=== PATIENT | female | born 1985 | race Caucasian/White ===

== ENCOUNTER 2019-06-21 16:56 | Emergency (ER) | payer MEDICAID ==
[2019-06-21] MEDS ORDERED: Pepcid 20 MG VIAL IV ONE ×2 (17:20→17:27)
[2019-06-21] MEDS ORDERED: Sodium Chloride 0.9% 1000 ML 1,000 ML IV STA (17:20)
[2019-06-21] MEDS ORDERED: Sodium Chloride 0.9% 1000 ML 1,000 ML ONE (17:27)
[2019-06-21 17:41] LABS: Absolute Neutrophil Ct (ANC) 3.79 (1.4-6.9); BASOPHIL % 0.3 % (0.0-0.4); Basophil (Absolute #) 0.02 (0-0.4); Eosinophil % 3.9 % (0.00-5.0); Eosinophil (Absolute #) 0.28 (0-0.5); Hematocrit 39.2 % (35-47); Lymphocyte (Absolute #) 2.51 (1.0-4.6); Lymphocytes % 35.2 % (24.0-44.0); Mean Cell Volume 95.8 fl (78-100); Mean Corpuscular Hemoglobin 31.8 pg (26-32); Mean Corpuscular Hgb Concent. 33.2 g/dl (32-36); Mean Platelet Volume 10.4 fl (6-9.5); Monocyte (Absolute #) 0.53 (0.0-1.3); Monocytes % 7.4 % (0.0-12.0); Neutrophil % 53.2 % (36.0-66.0); Platelet Count 282 K/mm3 (150-450); Red Blood Count 4.09 M/mm3 (4.1-5.4); Red Cell Distribution Width 12.8 % (11.5-14.0); White Blood Count 7.1 K/mm3 (4.0-10.5)
[2019-06-21 17:49] LABS: INR 1.03 (0.8-3.0); PROTIME 11.6 SECONDS (9.95-12.35)
[2019-06-21 17:54] LABS: ALKALINE PHOSPHATASE 73 U/L (38-126); AMYLASE 55 U/L (30-110); ANION GAP 10.1 MEQ/L (5-15); BLOOD UREA NITROGEN 9 mg/dL (7-17); CHLORIDE 106 mmol/L (98-107); Calcium 9.4 mg/dL (8.4-10.2); Carbon Dioxide 26 mmol/L (22-30); Creatinine 1 0.62 mg/dL (0.52-1.04); Glucose 85 mg/dL (74-106); LIPASE 37 U/L (23-300); Potassium 3.6 mmol/L (3.5-5.1); SGOT/AST 24 U/L (14-36); SGPT/ALT 22 U/L (0-35); SODIUM 138 mmol/L (137-145); Total Protein 7.2 g/dL (6.3-8.2)
[2019-06-21 18:23] LABS: Appearance SLIGHTLY CLOUDY (CLEAR); Bilirubin NEGATIVE (NEGATIVE); Blood NEGATIVE Ery/ul (0-5); Epithelial Cells RARE /HPF (FEW); Glucose NEGATIVE (NEGATIVE); Ketones NEGATIVE (NEGATIVE); Leukocyte Esterase TRACE (NEGATIVE); Mucus SLIGHT /HPF (NEGATIVE); Nitrite NEGATIVE (NEGATIVE); Protein,Urine Dip NEGATIVE (Negative); Specific Gravity 1.018 (1.005-1.025); Urobilinogen NEGATIVE mg/dL (0-1); WBC 0-2 /HPF (0-5)
--- NOTE | 2019-06-21 18:29 | ERPHSYRPT ---
- History of Present Illness Time Seen by Provider: 06/21/19 17:50 Historian: patient Exam Limitations: no limitations Patient Subjective Stated Complaint: "I have had vomiting, nausea, and abd pains for four days. [facility] went to [facility] and they ordered blood work and CT scan. Said it was my gallbladder, full of stones and sludge. Told me to follow up with my PCP and get my gallbladder removed. The pain has increased and is radiating to my chest. Pain is mainly in my mid upper quad and right upper quad. " Triage Nursing Assessment: Pt presents to ER with complaints of gallbladder issues and abd pain. Pt states now pain is radiating to chest. Abd is firm and very tender to touch. Pt appears in extreme pain. Pt causes nausea but denies vomiting at this time. States vomited yesterday. Complains of dark tar like stools yesterday and diarrhea this morning. Pt lungs clear and resp easy and unlabored at this time. Pt is alert and oriented x 3. Rating pain 10/10 scale. Able to walk and communicate normally. Physician History: Abdominal pain with nausea and vomiting for over one year, worse over the past week. Had a CT scan of her abdomen on 06/18/2019 which gallbladder disease per patient's history. Timing/Duration: week(s) (1), constant Activities at Onset: none Quality: aching, cramping Abdominal Pain Onset Location: RUQ Pain Radiation: epigastric Severity of Pain-Max: severe Severity of Pain-Current: severe Modifying Factors: Worsens With: eating Associated Symptoms: nausea, vomiting, No back, No chest pain, No diaphoresis, No diarrhea, No fever/chills, No fatigue, No headache, No heartburn, No loss of appetite, No neck pain, No rash, No shortness of breath, No weakness Previous symptoms: same symptoms as today, recently seen Allergies/Adverse Reactions: amoxicillin Allergy (Verified 06/21/19 17:35) Home Medications: Escitalopram Oxalate 10 mg PO DAILY 06/21/19 [History] Hydroxyzine HCl 25 mg [Atarax 25 mg] 25 mg PO Q12H PRN PRN 06/21/19 [ History] Hx Tetanus, Diphtheria Vaccination/Date Given: Yes Hx Influenza Vaccination/Date Given: Yes Hx Pneumococcal Vaccination/Date Given: No Immunizations Up to Date: Yes - Review of Systems Constitutional: No Fever, No Chills, No Fatigue Ears, Nose, & Throat: No Throat Pain, No Painful Swallowing Respiratory: No Cough, No Dyspnea Cardiac: No Chest Pain, No Edema, No Syncope Abdominal/Gastrointestinal: Abdominal Pain, Nausea, Vomiting, Appetite Changes, No Diarrhea, No Hematemesis Genitourinary Symptoms: No Dysuria, No Frequency, No Hematuria, No Flank Pain, No Vaginal Discharge Musculoskeletal: No Back Pain, No Neck Pain Skin: No Rash Neurological: No Dizziness, No Focal Weakness, No Sensory Changes Psychological: No Symptoms Endocrine: No Excessive Sweating Hematologic/Lymphatic: No Easy Bleeding, No Easy Bruising All Other Systems: Reviewed and Negative - Past Medical History Pertinent Past Medical History: Yes Musculoskeletal History: Rheumatoid Arthritis Psycho-Social History: Anxiety Other Medical History: Lupus - Past Surgical History Past Surgical History: Yes Other Surgical History: carpal tunnel - Social History Smoking Status: Current every day smoker Drug Use: none Patient Lives Alone: No - Female History Hx Last Menstrual Period: 07/13/2018 Hx Now: No - Nursing Vital Signs Nursing Vital Signs: Initial Vital Signs Temperature 99 F 06/21/19 17:18 Pulse Rate 81 06/21/19 17:18 Respiratory Rate 16 06/21/19 17:18 Blood Pressure 156/97 06/21/19 17:18 O2 Sat by Pulse Oximetry 97 06/21/19 17:18 Pain Scale Pain Intensity 4 - Physical Exam General Appearance: no apparent distress, alert Eye Exam: PERRL/EOMI, eyes nml inspection Ears, Nose, Throat Exam: normal ENT inspection, pharynx normal, moist mucous membranes Neck Exam: normal inspection, non-tender, supple, full range of motion Respiratory Exam: normal breath sounds, lungs clear, airway intact, No respiratory distress, No diminished breath sounds, No crackles/rales Cardiovascular Exam: regular rate/rhythm, normal heart sounds, normal peripheral pulses, capillary refill <2 sec Gastrointestinal/Abdomen Exam: soft, normal bowel sounds, tenderness (RUQ mild) , No distention, No mass, No guarding, No ecchymosis Back Exam: normal inspection, normal range of motion, No CVA tenderness, No vertebral tenderness Extremity Exam: normal inspection, normal range of motion, pelvis stable Neurologic Exam: alert, oriented x 3, cooperative, 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 as tested, normal mood/affect, sensation nml, No motor deficits Skin Exam: normal color, warm, dry SpO2 Interpretation: normal SpO2: 97 O2 Delivery: Room Air - Course Nursing assessment & vital signs reviewed: Yes EKG Interpreted by Me: RATE (70), Sinus Rhythm, NORMAL AXIS, NORMAL INTERVALS, NORMAL QRS, NORMAL ST-T, Other (negative previous EKG for comparison) - CT Exams Abdomen/Pelvis CT Interpretation: Other (from 06/18/2019: Per Radiologist Interpretation: Biliary Sludge, no cholecystitis, no stones, no gallbladder wall thickening) Ordered Tests: Active Orders 24 hr Category Date Time Status EKG-ER Only STAT Care 06/21/19 17:20 Active IV Insertion STAT Care 06/21/19 17:20 Active AMYLASE Stat Lab 06/21/19 17:20 Completed CBC W DIFF Stat Lab 06/21/19 17:20 Completed CMP Stat Lab 06/21/19 17:20 Completed HCG,QUALITATIVE URINE Stat Lab 06/21/19 17:51 Completed LIPASE Stat Lab 06/21/19 17:20 Completed Lactic Acid Stat Lab 06/21/19 17:26 Completed PROTIME WITH INR Stat Lab 06/21/19 17:20 Completed TROPONIN Q3H Lab 06/21/19 17:20 Completed TROPONIN Q3H Lab 06/21/19 20:30 Ordered TROPONIN Q3H Lab 06/21/19 23:30 Ordered TROPONIN Q3H Lab 06/22/19 02:30 Ordered TROPONIN Q3H Lab 06/22/19 05:30 Ordered UA W/RFX UR CULTURE Stat Lab 06/21/19 17:51 Completed Medication Summary Discontinued Medications Generic Name Dose Route Start Last Admin Trade Name Freq PRN Reason Stop Dose Admin Famotidine 20 mg 06/21/19 17:20 06/21/19 17:30 Pepcid 20 Mg Vial IV 06/21/19 17:21 20 mg STAT ONE Administration Famotidine Confirm 06/21/19 17:27 Pepcid 20 Mg Vial Administered 06/21/19 17:28 Dose 20 mg IV .STK-MED ONE Sodium Chloride 1,000 mls @ 999 mls/hr 06/21/19 17:20 06/21/19 18:46 Sodium Chloride 0.9% 1000 Ml IV 06/21/19 18:20 Infused .Q1H1M STA Infusion Sodium Chloride Confirm 06/21/19 17:27 Sodium Chloride 0.9% 1000 Ml Administered 06/21/19 17:28 Dose 1,000 mls @ .ROUTE .[facility] ONE Lab/Rad Data: Laboratory Result Diagrams 06/21/19 17:20 06/21/19 17:20 Laboratory Results 06/21/19 06/21/19 06/21/19 Range/Units 17:51 17:51 17:26 WBC (4.0-10.5) K/mm3 RBC (4.1-5.4) M/mm3 Hgb (12.0-16.0) gm/dl Hct (35-47) % MCV (78-100) fl MCH (26-32) pg MCHC (32-36) g/dl RDW (11.5-14.0) % Plt Count (150-450) K/mm3 MPV (6-9.5) fl Gran % (36.0-66.0) % Eos # (Auto) (0-0.5) Absolute Lymphs (auto) (1.0-4.6) Absolute Monos (auto) (0.0-1.3) Lymphocytes % (24.0-44.0) % Monocytes % (0.0-12.0) % Eosinophils % (0.00-5.0) % Basophils % (0.0-0.4) % Absolute Granulocytes (1.4-6.9) Basophils # (0-0.4) PT (9.95-12.35) SECONDS INR (0.8-3.0) Sodium (137-145) mmol/L Potassium (3.5-5.1) mmol/L Chloride (98-107) mmol/L Carbon Dioxide (22-30) mmol/L Anion Gap (5-15) MEQ/L BUN (7-17) mg/dL Creatinine (0.52-1.04) mg/dL Estimated GFR ML/MIN Glucose (74-106) mg/dL Lactic Acid 0.6 (0.4-2.0) Calcium (8.4-10.2) mg/dL Total Bilirubin (0.2-1.3) mg/dL AST (14-36) U/L ALT (0-35) U/L Alkaline Phosphatase (38-126) U/L Troponin I (0.000-0.034) ng/mL Serum Total Protein (6.3-8.2) g/dL Albumin (3.5-5.0) g/dL Amylase (30-110) U/L Lipase (23-300) U/L Urine Color YELLOW (YELLOW) Urine Appearance SLIGHTLY CLOUDY (CLEAR) Urine pH 5.0 (5-6) Ur Specific Herreid 1.018 (1.005-1.025) Urine Protein NEGATIVE (Negative) Urine Ketones NEGATIVE (NEGATIVE) Urine Blood NEGATIVE (0-5) Reymundo/ul Urine Nitrite NEGATIVE (NEGATIVE) Urine Bilirubin NEGATIVE (NEGATIVE) Urine Urobilinogen NEGATIVE (0-1) mg/dL Ur Leukocyte Esterase TRACE (NEGATIVE) Urine WBC (Auto) 0-2 (0-5) /HPF Urine RBC (Auto) NONE (0-2) /HPF U Epithel Cells (Auto) RARE (FEW) /HPF Urine Bacteria (Auto) NONE (NEGATIVE) /HPF Urine Mucus (Auto) SLIGHT (NEGATIVE) /HPF Urine Culture Reflexed NO (NO) Urine Glucose NEGATIVE (NEGATIVE) mg/dL Urine HCG, Qual NEGATIVE (Negative) 06/21/19 06/21/19 06/21/19 Range/Units 17:20 17:20 17:20 WBC (4.0-10.5) K/mm3 RBC (4.1-5.4) M/mm3 Hgb (12.0-16.0) gm/dl Hct (35-47) % MCV (78-100) fl MCH (26-32) pg MCHC (32-36) g/dl RDW (11.5-14.0) % Plt Count (150-450) K/mm3 MPV (6-9.5) fl Gran % (36.0-66.0) % Eos # (Auto) (0-0.5) Absolute Lymphs (auto) (1.0-4.6) Absolute Monos (auto) (0.0-1.3) Lymphocytes % (24.0-44.0) % Monocytes % (0.0-12.0) % Eosinophils % (0.00-5.0) % Basophils % (0.0-0.4) % Absolute Granulocytes (1.4-6.9) Basophils # (0-0.4) PT 11.6 (9.95-12.35) SECONDS INR 1.03 (0.8-3.0) Sodium 138 (137-145) mmol/L Potassium 3.6 (3.5-5.1) mmol/L Chloride 106 (98-107) mmol/L Carbon Dioxide 26 (22-30) mmol/L Anion Gap 10.1 (5-15) MEQ/L BUN 9 (7-17) mg/dL Creatinine 0.62 (0.52-1.04) mg/dL Estimated GFR > 60.0 ML/MIN Glucose 85 (74-106) mg/dL Lactic Acid (0.4-2.0) Calcium 9.4 (8.4-10.2) mg/dL Total Bilirubin 0.40 (0.2-1.3) mg/dL AST 24 (14-36) U/L ALT 22 (0-35) U/L Alkaline Phosphatase 73 (38-126) U/L Troponin I < 0.012 (0.000-0.034) ng/mL Serum Total Protein 7.2 (6.3-8.2) g/dL Albumin 4.0 (3.5-5.0) g/dL Amylase 55 (30-110) U/L Lipase 37 (23-300) U/L Urine Color (YELLOW) Urine Appearance (CLEAR) Urine pH (5-6) Ur Specific Herreid (1.005-1.025) Urine Protein (Negative) Urine Ketones (NEGATIVE) Urine Blood (0-5) Reymundo/ul Urine Nitrite (NEGATIVE) Urine Bilirubin (NEGATIVE) Urine Urobilinogen (0-1) mg/dL Ur Leukocyte Esterase (NEGATIVE) Urine WBC (Auto) (0-5) /HPF Urine RBC (Auto) (0-2) /HPF U Epithel Cells (Auto) (FEW) /HPF Urine Bacteria (Auto) (NEGATIVE) /HPF Urine Mucus (Auto) (NEGATIVE) /HPF Urine Culture Reflexed (NO) Urine Glucose (NEGATIVE) mg/dL Urine HCG, Qual (Negative) 06/21/19 Range/Units 17:20 WBC 7.1 (4.0-10.5) K/mm3 RBC 4.09 L (4.1-5.4) M/mm3 Hgb 13.0 (12.0-16.0) gm/dl Hct 39.2 (35-47) % MCV 95.8 (78-100) fl MCH 31.8 (26-32) pg MCHC 33.2 (32-36) g/dl RDW 12.8 (11.5-14.0) % Plt Count 282 (150-450) K/mm3 MPV 10.4 H (6-9.5) fl Gran % 53.2 (36.0-66.0) % Eos # (Auto) 0.28 (0-0.5) Absolute Lymphs (auto) 2.51 (1.0-4.6) Absolute Monos (auto) 0.53 (0.0-1.3) Lymphocytes % 35.2 (24.0-44.0) % Monocytes % 7.4 (0.0-12.0) % Eosinophils % 3.9 (0.00-5.0) % Basophils % 0.3 (0.0-0.4) % Absolute Granulocytes 3.79 (1.4-6.9) Basophils # 0.02 (0-0.4) PT (9.95-12.35) SECONDS INR (0.8-3.0) Sodium (137-145) mmol/L Potassium (3.5-5.1) mmol/L Chloride (98-107) mmol/L Carbon Dioxide (22-30) mmol/L Anion Gap (5-15) MEQ/L BUN (7-17) mg/dL Creatinine (0.52-1.04) mg/dL Estimated GFR ML/MIN Glucose (74-106) mg/dL Lactic Acid (0.4-2.0) Calcium (8.4-10.2) mg/dL Total Bilirubin (0.2-1.3) mg/dL AST (14-36) U/L ALT (0-35) U/L Alkaline Phosphatase (38-126) U/L Troponin I (0.000-0.034) ng/mL Serum Total Protein (6.3-8.2) g/dL Albumin (3.5-5.0) g/dL Amylase (30-110) U/L Lipase (23-300) U/L Urine Color (YELLOW) Urine Appearance (CLEAR) Urine pH (5-6) Ur Specific Herreid (1.005-1.025) Urine Protein (Negative) Urine Ketones (NEGATIVE) Urine Blood (0-5) Reymundo/ul Urine Nitrite (NEGATIVE) Urine Bilirubin (NEGATIVE) Urine Urobilinogen (0-1) mg/dL Ur Leukocyte Esterase (NEGATIVE) Urine WBC (Auto) (0-5) /HPF Urine RBC (Auto) (0-2) /HPF U Epithel Cells (Auto) (FEW) /HPF Urine Bacteria (Auto) (NEGATIVE) /HPF Urine Mucus (Auto) (NEGATIVE) /HPF Urine Culture Reflexed (NO) Urine Glucose (NEGATIVE) mg/dL Urine HCG, Qual (Negative) - Progress Progress: improved Progress Note: 06/21/19 19:58 Patient has no abdominal pain on repeat examinations and nausea has resolved. No labwork or the examination requires repeating the CT scan at this time that was performed a few days ago and patient does not need immediate surgical intervention at this time and can follow-up as an outpatient with general surgery. Counseled pt/family regarding: lab results, diagnosis, need for follow-up, rad results - Departure Departure Disposition: Home Clinical Impression: RUQ abdominal pain, Biliary sludge, Elevated blood pressure reading without diagnosis of hypertension Nausea and vomiting Qualifiers: Vomiting type: unspecified Vomiting Intractability: non-intractable Qualified Code(s): R11.2 - Nausea with vomiting, unspecified Condition: Good Critical Care Time: No Referrals: DOCTOR,NO FAMILY [Primary Care Provider] - CORONA LEBRON [ACTIVE STAFF] - 06/22/19 (General Surgeon for your reference) Instructions: Acute Abdomen (Belly Pain), Adult (DC) Additional Instructions: Discharge/Care Plan BRENNAN PRESLEY was seen on 06/21/19 in the Emergency Room. The patient was counseled regarding Diagnosis,Lab results, Imaging studies, need for follow up and when to return to the Emergency Room. It is important to follow-up with the general surgeon to continue evaluating your symptoms. Prescriptions given: Phenergan and Zofran Discharge Note I have spoken with the patient and family. I have explained the patient's condition, diagnosis and treatment plan based on the information available to me at this time. I have answered the patient's and/or caregiver's questions and addressed any concerns. The patient and family have as good understanding of the patient's diagnosis, condition and treatment plan as can be expected at this point. The vital signs have been stable. The patient's condition is stable and appropriate for discharge from the emergency department. The patient will pursue further outpatient evaluation with the primary care physician or other designated or consulting physician as outlined in the discharge instructions. The patient and family are agreeable to this plan of care and follow-up instructions have been explained in detail. The patient and family have received these instruction. The patient/and family are aware that any significant change in condition or worsening of symptoms should prompt an immediate return to this or the closest emergency department or call 911. Prescriptions: Promethazine HCl 25 mg [Phenergan 25 mg] 25 mg PO Q6H PRN PRN #12 tablet PRN Reason: Nausea Ondansetron ODT 4 MG [Zofran Odt 4 mg] 4 mg PO Q8H PRN PRN #10 tab.rapdis PRN Reason: Nausea
[2019-06-21 20:48] VITALS: BP 151/105; PULSE 76; O2SAT 99
== END 2019-06-21 20:50 | disposition home or self-care (01) ==
LOC: ED 16:56
DX: R10.11 Right upper quadrant pain (principal); K83.8 Other specified diseases of biliary tract; R03.0 Elevated blood-pressure reading, without diagnosis of hypertension; R11.2 Nausea with vomiting, unspecified
CPT/HCPCS: 36000; 36415; 80053; 81001; 82150; 83605; 83690; 84484; 84703; 85025; 85610; 93005; 96360; 96374; 99284

== ENCOUNTER 2020-04-26 16:41 | Emergency (ER) | payer MEDICAID, OTHER ==
[2020-04-26] MEDS ORDERED: BENADRYL 50 MG/ML IV ONE (17:18)
[2020-04-26] MEDS ORDERED: Inapsine 5 MG/2 ML IV ONE (17:18)
[2020-04-26] MEDS ORDERED: TORAdol 30 mg Injection IV ONE (17:18)
[2020-04-26] MEDS ORDERED: Sodium Chloride 0.9% 1000 ML 1,000 ML IV STA (17:18)
[2020-04-26] MEDS ORDERED: BENADRYL 50 MG/ML ONE (17:29)
[2020-04-26] MEDS ORDERED: TORAdol 30 mg Injection ONE (17:29)
[2020-04-26] MEDS ORDERED: Inapsine 5 MG/2 ML ONE (17:29)
[2020-04-26] MEDS ORDERED: Sodium Chloride 0.9% 1000 ML 1,000 ML ONE (17:29)
[2020-04-26 17:50] LABS: Absolute Neutrophil Ct (ANC) 5.41 (1.4-6.9); BASOPHIL % 0.2 % (0.0-0.4); Basophil (Absolute #) 0.02 (0-0.4); Eosinophil % 4.3 % (0.00-5.0); Eosinophil (Absolute #) 0.38 (0-0.5); Hematocrit 39.2 % (35-47); Lymphocyte (Absolute #) 2.54 (1.0-4.6); Lymphocytes % 28.4 % (24.0-44.0); Mean Cell Volume 96.1 fl (78-100); Mean Corpuscular Hemoglobin 31.9 pg (26-32); Mean Corpuscular Hgb Concent. 33.2 g/dl (32-36); Mean Platelet Volume 11.1 fl (7.5-11.0); Monocyte (Absolute #) 0.59 (0.0-1.3); Monocytes % 6.6 % (0.0-12.0); Neutrophil % 60.5 % (36.0-66.0); Platelet Count 237 K/mm3 (150-450); Red Blood Count 4.08 M/mm3 (4.1-5.4); Red Cell Distribution Width 12.8 % (11.5-14.0); White Blood Count 8.9 K/mm3 (4.0-10.5)
[2020-04-26 17:53] LABS: Appearance CLOUDY (CLEAR); Bilirubin NEGATIVE (NEGATIVE); Blood NEGATIVE Ery/ul (0-5); Epithelial Cells FEW /HPF (FEW); Glucose NEGATIVE (NEGATIVE); Ketones NEGATIVE (NEGATIVE); Leukocyte Esterase LARGE (NEGATIVE); Mucus SLIGHT /HPF (NEGATIVE); Nitrite NEGATIVE (NEGATIVE); Protein,Urine Dip NEGATIVE (Negative); Specific Gravity 1.017 (1.005-1.025); Urobilinogen NEGATIVE mg/dL (0-1); WBC 26-50 /HPF (0-5)
[2020-04-26 17:55] LABS: Bacteria NONE SEEN /HPF (NEGATIVE)
--- NOTE | 2020-04-26 17:57 | ERPHSYRPT ---
- History of Present Illness Time Seen by Provider: 04/26/20 16:43 Source: patient Exam Limitations: no limitations Patient Subjective Stated Complaint: headache Triage Nursing Assessment: pt to ED c/o NOVA, NVD, cough, SOB, loss of taste and smell x 10 days. states she started feeling bad and believed she had sinus infx. sx have gotten worse since. afebrile on arrival. does not appear in resp distress. denies any known COVID exposure but works in the public. was tested at [facility] 04/23 for COVID but still awaiting test results Physician History: Patient here with flulike symptoms x10 days. She states that she was Covid swab 4 days ago. She does not know the results here. She complains of some continui ng headache, cough, chills. She states her biggest concern is her headache tonight. She does have a history of migraines. She states this is not the worst headache of her life yet. Location:generalized Quality: malaise and fatigue Radiation: none Severity: moderate Duration: 10 days Timing: gradual Modifying factors/associated signs and symptoms: COVID test pending Timing/Duration: week(s) Severity: moderate Modifying Factors: Improves With: nothing Associated Symptoms: nausea, vomiting, malaise Allergies/Adverse Reactions: amoxicillin Allergy (Verified 06/21/19 17:35) Home Medications: Escitalopram Oxalate [Lexapro] 10 mg PO DAILY 04/26/20 [History] Pregabalin [Lyrica] 75 mg PO DAILY 04/26/20 [History] Hx Tetanus, Diphtheria Vaccination/Date Given: Yes Hx Influenza Vaccination/Date Given: Yes Hx Pneumococcal Vaccination/Date Given: No Travel Risk - International Travel Have you traveled outside of the country in past 3 weeks: No - Coronavirus Screening Are you exhibiting any of the following symptoms?: Yes Symptoms: Headaches/Body Aches/Fatigue - Review of Systems Constitutional: Fever, Chills, Fatigue, Malaise Eyes: No Symptoms Ears, Nose, & Throat: No Symptoms Respiratory: No Cough, No Dyspnea Cardiac: No Chest Pain, No Edema, No Syncope Abdominal/Gastrointestinal: No Abdominal Pain, No Nausea, No Vomiting, No Diarrhea Genitourinary Symptoms: No Dysuria Musculoskeletal: No Back Pain, No Neck Pain Skin: No Rash Neurological: No Dizziness, No Focal Weakness, No Sensory Changes Psychological: No Symptoms Endocrine: No Symptoms All Other Systems: Reviewed and Negative - Past Medical History Pertinent Past Medical History: Yes Musculoskeletal History: Fibromyalgia, Rheumatoid Arthritis Psycho-Social History: Anxiety Other Medical History: Lupus - Past Surgical History Past Surgical History: Yes Gastrointestinal: Cholecystectomy Other Surgical History: carpal tunnel - Social History Smoking Status: Current every day smoker How long have you smoked: years Exposure to second hand smoke: No Drug Use: none Patient Lives Alone: No - Female History Hx Now: No - Nursing Vital Signs Nursing Vital Signs: Initial Vital Signs Temperature 98.4 F 04/26/20 16:49 Pulse Rate 93 H 04/26/20 16:49 Respiratory Rate 18 04/26/20 16:49 Blood Pressure 145/93 04/26/20 16:49 O2 Sat by Pulse Oximetry 100 04/26/20 16:49 Pain Scale Pain Intensity 8 - Physical Exam General Appearance: no apparent distress, alert Eye Exam: PERRL/EOMI, eyes nml inspection Ears, Nose, Throat Exam: normal ENT inspection, TMs normal, pharynx normal, moist mucous membranes Neck Exam: normal inspection, non-tender, supple, full range of motion Respiratory Exam: normal breath sounds, lungs clear, No respiratory distress Cardiovascular Exam: regular rate/rhythm, normal heart sounds, normal peripheral pulses Gastrointestinal/Abdomen Exam: soft, normal bowel sounds, No tenderness, No mass Back Exam: normal inspection, normal range of motion, No CVA tenderness, No vertebral tenderness Extremity Exam: normal inspection, normal range of motion, pelvis stable Neurologic Exam: alert, oriented x 3, cooperative, normal mood/affect, nml cerebellar function, nml station & gait, sensation nml, No motor deficits Skin Exam: normal color, warm, dry, No rash Lymphatic Exam: No adenopathy SpO2 Interpretation: normal SpO2: 100 Comments: 04/26/20 18:06 No trismus, able to fully extend neck, normal range of motion of neck without pain. Uvula is midline, no swelling of the mouth, noraml oropharynx. No exudate, no signs of meningitis, no floor of mouth swelling, no hot potato voice on exam. No buccal swelling, no gum bleeding, no signs of tooth abscess/infection. No obvious deformity, sensation intact, 2+ capillary refill, 2 point tactile discrimination intact. 5 out of 5 strength. Full range of motion without pain. Compartments are soft, nontender. Overlying skin shows no tenting, bruising, ecchymosis. Motor: There is no pronator drift of out-stretched arms. Muscle bulk and tone are normal. Strength is full bilaterally. Reflexes: Reflexes are 2+ and symmetric at the biceps, triceps, knees, and ankles. Plantar responses are flexor. Sensory: Light touch sense are intact in bilateral upper and lower extremities. There is no sign of neglect. Coordination: Rapid alternating movements are intact. There is no dysmetria on [id number] and [id number]. There are no abnormal or extraneous movements. Romberg is absent. Gait/Stance: Posture is normal. Gait is steady with normal steps, base, arm swing, and turning. Heel and toe walking are normal. Tandem gait is normal. - Course Nursing assessment & vital signs reviewed: Yes EKG Interpreted by Me: Sinus Rhythm Ordered Tests: Active Orders 24 hr Category Date Time Status EKG-ER Only STAT Care 04/26/20 17:18 Active IV Insertion STAT Care 04/26/20 17:18 Active HEAD WITHOUT CONTRAST [CT] Stat Exams 04/26/20 17:19 Taken CBC W DIFF Stat Lab 04/26/20 17:45 Completed CMP Stat Lab 04/26/20 17:45 Completed CULTURE,URINE Stat Lab 04/26/20 17:19 Received HCG,QUALITATIVE URINE Stat Lab 04/26/20 17:19 Completed UA W/RFX UR CULTURE Stat Lab 04/26/20 17:19 Completed Medication Summary Discontinued Medications Generic Name Dose Route Start Last Admin Trade Name Clint PRN Reason Stop Dose Admin Diphenhydramine HCl 25 mg 04/26/20 17:18 04/26/20 17:32 Benadryl 50 Mg/Ml IV 04/26/20 17:19 25 mg STAT ONE Administration Diphenhydramine HCl Confirm 04/26/20 17:29 Benadryl 50 Mg/Ml Administered 04/26/20 17:30 Dose 50 mg .ROUTE .STK-MED ONE Droperidol 1.25 mg 04/26/20 17:18 04/26/20 17:32 Inapsine 5 Mg/2 Ml IV 04/26/20 17:19 1.25 mg STAT ONE Administration Droperidol Confirm 04/26/20 17:29 Inapsine 5 Mg/2 Ml Administered 04/26/20 17:30 Dose 5 mg .ROUTE .STK-MED ONE Sodium Chloride 1,000 mls @ 999 mls/hr 04/26/20 17:18 04/26/20 18:39 Sodium Chloride 0.9% 1000 Ml IV 04/26/20 18:18 Infused .Q1H1M STA Infusion Sodium Chloride Confirm 04/26/20 17:29 Sodium Chloride 0.9% 1000 Ml Administered 04/26/20 17:30 Dose 1,000 mls @ ud .ROUTE .STK-MED ONE Ketorolac Tromethamine 30 mg 04/26/20 17:18 04/26/20 17:32 Toradol 30 Mg Injection IV 04/26/20 17:19 30 mg STAT ONE Administration Ketorolac Tromethamine Confirm 04/26/20 17:29 Toradol 30 Mg Injection Administered 04/26/20 17:30 Dose 30 mg .ROUTE .STK-MED ONE Lab/Rad Data: Laboratory Result Diagrams 04/26/20 17:45 04/26/20 17:45 Laboratory Results 04/26/20 04/26/20 04/26/20 Range/Units 17:45 17:45 17:19 WBC 8.9 (4.0-10.5) K/mm3 RBC 4.08 L (4.1-5.4) M/mm3 Hgb 13.0 (12.0-16.0) gm/dl Hct 39.2 (35-47) % MCV 96.1 (78-100) fl MCH 31.9 (26-32) pg MCHC 33.2 (32-36) g/dl RDW 12.8 (11.5-14.0) % Plt Count 237 (150-450) K/mm3 MPV 11.1 H (7.5-11.0) fl Gran % 60.5 (36.0-66.0) % Eos # (Auto) 0.38 (0-0.5) Absolute Lymphs (auto) 2.54 (1.0-4.6) Absolute Monos (auto) 0.59 (0.0-1.3) Lymphocytes % 28.4 (24.0-44.0) % Monocytes % 6.6 (0.0-12.0) % Eosinophils % 4.3 (0.00-5.0) % Basophils % 0.2 (0.0-0.4) % Absolute Granulocytes 5.41 (1.4-6.9) Basophils # 0.02 (0-0.4) Sodium 135 L (137-145) mmol/L Potassium 4.1 (3.5-5.1) mmol/L Chloride 112 H (98-107) mmol/L Carbon Dioxide 19 L (22-30) mmol/L Anion Gap 8.6 (5-15) MEQ/L BUN 10 (7-17) mg/dL Creatinine 0.48 L (0.52-1.04) mg/dL Estimated GFR > 60.0 ML/MIN Glucose 99 (74-106) mg/dL Calcium 8.9 (8.4-10.2) mg/dL Total Bilirubin 0.40 (0.2-1.3) mg/dL AST 25 (14-36) U/L ALT 16 (0-35) U/L Alkaline Phosphatase 55 (38-126) U/L Serum Total Protein 6.9 (6.3-8.2) g/dL Albumin 3.9 (3.5-5.0) g/dL Urine Color (YELLOW) Urine Appearance (CLEAR) Urine pH (5-6) Ur Specific [place] (1.005-1.025) Urine Protein (Negative) Urine Ketones (NEGATIVE) Urine Blood (0-5) Reymundo/ul Urine Nitrite (NEGATIVE) Urine Bilirubin (NEGATIVE) Urine Urobilinogen (0-1) mg/dL Ur Leukocyte Esterase (NEGATIVE) Urine WBC (Auto) (0-5) /HPF Urine RBC (Auto) (0-2) /HPF U Epithel Cells (Auto) (FEW) /HPF Urine Bacteria (Auto) (NEGATIVE) /HPF Urine Mucus (Auto) (NEGATIVE) /HPF Urine Culture Reflexed (NO) Urine Glucose (NEGATIVE) mg/dL Urine HCG, Qual NEGATIVE (Negative) 04/26/20 Range/Units 17:19 WBC (4.0-10.5) K/mm3 RBC (4.1-5.4) M/mm3 Hgb (12.0-16.0) gm/dl Hct (35-47) % MCV (78-100) fl MCH (26-32) pg MCHC (32-36) g/dl RDW (11.5-14.0) % Plt Count (150-450) K/mm3 MPV (7.5-11.0) fl Gran % (36.0-66.0) % Eos # (Auto) (0-0.5) Absolute Lymphs (auto) (1.0-4.6) Absolute Monos (auto) (0.0-1.3) Lymphocytes % (24.0-44.0) % Monocytes % (0.0-12.0) % Eosinophils % (0.00-5.0) % Basophils % (0.0-0.4) % Absolute Granulocytes (1.4-6.9) Basophils # (0-0.4) Sodium (137-145) mmol/L Potassium (3.5-5.1) mmol/L Chloride (98-107) mmol/L Carbon Dioxide (22-30) mmol/L Anion Gap (5-15) MEQ/L BUN (7-17) mg/dL Creatinine (0.52-1.04) mg/dL Estimated GFR ML/MIN Glucose (74-106) mg/dL Calcium (8.4-10.2) mg/dL Total Bilirubin (0.2-1.3) mg/dL AST (14-36) U/L ALT (0-35) U/L Alkaline Phosphatase (38-126) U/L Serum Total Protein (6.3-8.2) g/dL Albumin (3.5-5.0) g/dL Urine Color YELLOW (YELLOW) Urine Appearance CLOUDY (CLEAR) Urine pH 6.0 (5-6) Ur Specific [place] 1.017 (1.005-1.025) Urine Protein NEGATIVE (Negative) Urine Ketones NEGATIVE (NEGATIVE) Urine Blood NEGATIVE (0-5) Reymundo/ul Urine Nitrite NEGATIVE (NEGATIVE) Urine Bilirubin NEGATIVE (NEGATIVE) Urine Urobilinogen NEGATIVE (0-1) mg/dL Ur Leukocyte Esterase LARGE (NEGATIVE) Urine WBC (Auto) 26-50 (0-5) /HPF Urine RBC (Auto) 6-10 (0-2) /HPF U Epithel Cells (Auto) FEW (FEW) /HPF Urine Bacteria (Auto) NONE SEEN (NEGATIVE) /HPF Urine Mucus (Auto) SLIGHT (NEGATIVE) /HPF Urine Culture Reflexed YES (NO) Urine Glucose NEGATIVE (NEGATIVE) mg/dL Urine HCG, Qual (Negative) - Progress Progress: improved Progress Note: 04/26/20 18:07 We will obtain a head CT looking for any signs of intracranial issue, head bleed, tumor. We will treat patient's symptoms. It does appear to be flu like, possible Covid. We will give fluids, nausea medication, migraine cocktail. Overall patient's vital signs and exam are very benign. Therefore I do believe she will do great with supportive care. Pending results. Negative . Cough, congestion, and other symptoms appear to be viral in etiology. Symptomat ic care: saline and suction to nose prn. Run a humidifier in bedroom. Elevate HOB to sleep and encourage fluids. They should use Tylenol and motrin as needed for fever and pain control. Return if not improving or worsens. 04/26/20 18:53 Patient is feeling improved. We are awaiting head CT to return. Should this return negative patient will likely be discharged home. Transfer of care to Dr. Cook at 7 PM. Him and I had a in-depth discussion. He will repeat neuro exam, follow-up on head CT, most likely discharge patient home based on results. Counseled pt/family regarding: lab results, diagnosis, need for follow-up, rad results - Departure Departure Disposition: Home Clinical Impression: Headache, Flu-like symptoms Condition: Stable Critical Care Time: No Referrals: DOCTOR,NO FAMILY [Primary Care Provider] - Instructions: Headache, Adult (DC) Additional Instructions: Neurological reexam in 24 to 40 hours with PCP. Return here for new or changing symptoms.
[2020-04-26 18:05] LABS: ALBUMIN 3.9 g/dL (3.5-5.0); ALKALINE PHOSPHATASE 55 U/L (38-126); ANION GAP 8.6 MEQ/L (5-15); BLOOD UREA NITROGEN 10 mg/dL (7-17); CHLORIDE 112 mmol/L (98-107); Calcium 8.9 mg/dL (8.4-10.2); Carbon Dioxide 19 mmol/L (22-30); Creatinine 1 0.48 mg/dL (0.52-1.04); EST GLOMERULAR FILTRATION RATE > 60.0 ML/MIN; Glucose 99 mg/dL (74-106); Potassium 4.1 mmol/L (3.5-5.1); SGOT/AST 25 U/L (14-36); SGPT/ALT 16 U/L (0-35); SODIUM 135 mmol/L (137-145); Total Protein 6.9 g/dL (6.3-8.2)
--- NOTE | 2020-04-26 21:00 | XRAY ---
Indication: Headache 2 days. History of migraines. Multiple contiguous axial images obtained through the head without contrast. Comparison: None Ventriculosulcal pattern appears symmetric. Fourth ventricle demonstrates dense calcification with round rim of calcification overall measuring 8 mm left of midline, probable normal physiologic choroid plexus calcification as there are additional smaller calcifications in both lateral/third ventricles and also in foramen of Luschka. Doubt malignancy given well-circumscribed rounded appearance with no hydrocephalus and no mass effect. No acute intracranial hemorrhage. [place]idalgo-white matter differentiation preserved. Bony calvarium intact. Visualized paranasal sinuses and mastoid air cells are clear. Impression: Intraventricular choroid plexus calcifications, probably normal physiologic. No acute intracranial abnormalities. Comment: Preliminary interpretation was made by [facility]. No critical discrepancy.
[2020-04-26] MEDS ORDERED: ROCEPHIN 1 Gm-D5w 50 ml Bag** 1 G/50 ML IVPB IV STA (21:32)
[2020-04-26] MEDS ORDERED: ROCEPHIN 1 Gm-D5w 50 ml Bag** 1 G/50 ML IVPB IV ONE (21:46)
[2020-04-26 23:22] VITALS: BP 132/93; PULSE 82; O2SAT 99
== END 2020-04-26 23:22 | disposition home or self-care (01) ==
LOC: ED 16:41
DX: R51.9 Headache, unspecified (principal); N39.0 Urinary tract infection, site not specified; G93.9 Disorder of brain, unspecified; R05 Cough; R68.83 Chills (without fever)
CPT/HCPCS: 36000; 36415; 70450; 80053; 81001; 84703; 85025; 87040; 87086; 93005; 96360; 96374; 96375; 99285; J0696; J1200; J1885